=== PATIENT | female | born 1990 | race Caucasian/White ===

== ENCOUNTER → 2022-12-28 | Outpatient (CLI) | payer BC | END | disposition home or self-care (01) | LOC: LAB 15:59 → LAB SHORT 15:59 | DX: Z34.83 Encounter for supervision of other normal pregnancy, third trimester (principal) | CPT/HCPCS: 87081; 87150 ==

== ENCOUNTER → 2024-12-07 | Outpatient (CLI) | payer BC ==
[~2024-12-07] MED LIST: NIFE30ER PO
[2024-12-07 17:32] LABS: Source, Urine Clean Catch
[2024-12-07 18:59] LABS: Bacteria Many /hpf; Red Blood Cells, Urine 0-2 /hpf (0-2); Squamous Epithelial Cells Mod /hpf (Few)
== END | disposition home or self-care (01) ==
LOC: LAB SHORT 17:29 → LAB 17:29
PROVIDERS: Advanced Practice Midwife
DX: Z34.81 Encounter for supervision of other normal pregnancy, first trimester (principal)
CPT/HCPCS: 81015; 87086

== ENCOUNTER → 2025-06-19 | Outpatient (CLI) | payer BC | LOC: LAB 11:52 → LAB SHORT 11:52 | DX: Z34.83 Encounter for supervision of other normal pregnancy, third trimester (principal) | CPT/HCPCS: 87081; 87150 ==

== ENCOUNTER 2025-07-08 20:04 | Inpatient (IN) | payer BC ==
[~2025-07-08] VITALS: Ht 162.6 cm; Wt 83.6 kg
[2025-07-08] VITALS (8 sets, daily range): BP systolic 121–155; BP diastolic 79–91
[2025-07-08 21:09] LABS: BASOPHILS ABSOLUTE AUTO 0.03 K/mm3 (0.00-0.23); BASOPHILS PERCENT AUTO 0 % (0-2); EOSINOPHILS ABSOLUTE AUTO 0.04 K/mm3 (0.00-0.68); EOSINOPHILS PERCENT AUTO 0 % (0-6); Hematocrit 34.4 % (33.0-51.0); Hemoglobin 12.4 g/dL (11.5-16.0); IMMATURE GRAN ABSOLUTE AUTO 0.12 K/mm3 (0.00-0.10); IMMATURE GRAN PERCENT AUTO 1 % (0-1); LYMPHOCYTES ABSOLUTE AUTO 1.48 K/mm3 (0.84-5.20); LYMPHOCYTES PERCENT AUTO 10 % (21-46); MONOCYTES ABSOLUTE AUTO 0.76 K/mm3 (0.16-1.47); MONOCYTES PERCENT AUTO 5 % (4-13); Mean Corpuscular HGB Conc 36.0 g/dL (31.5-36.5); Mean Corpuscular Volume 88 fL (80-100); NEUTROPHILS ABSOLUTE AUTO 12.39 K/mm3 (1.96-9.15); NEUTROPHILS PERCENT AUTO 84 % (41-73); NRBC ABSOLUTE 0.00 K/mm3 (0.00-0.02); NRBC Auto 0.0 /100 WBC (0.0-0.2); Platelet Count 214 K/mm3 (150-400); RDW Coefficient Variation 12.4 % (11.7-14.2); RDW Standard Deviation 39.6 fL (35.1-46.3)
[2025-07-08 21:27] LABS: Alanine Aminotransfer (ALT/SGP 21.0 U/L (12-78); Albumin, Blood 2.6 g/dL (3.4-5.0); Albumin/Globulin Ratio 0.7 (0.8-1.8); Anion Gap 12.0 mmol/L (3-11); Aspartate Aminotrans (AST/SGOT 22.0 U/L (12-37); Bilirubin, Total 0.3 mg/dL (0.1-1.0); Blood Urea Nitrogen 9.0 mg/dL (8-24); CO2, Blood 21.0 mmol/L (21-32); Calcium, Blood 8.7 mg/dL (8.5-10.1); Chloride, Blood 111.0 mmol/L (98-108); Creatinine, Blood 0.53 mg/dL (0.40-1.00); Globulin, Blood 3.7 g/dL (2.2-4.0); Glucose, Blood 101.0 mg/dL (70-99); Potassium, Blood 3.3 mmol/L (3.5-5.5); Sodium, Blood 141.0 mmol/L (136-145); Total Protein, Blood 6.3 g/dL (6.4-8.2)
[2025-07-08 21:32] LABS: Creatinine, Urine Random 24.0 mg/dL (27.00-270.00); Protein, Urine Random 5.7 mg/dL (0.0-11.9); Protein/Creat Ratio, Ur Random 0.2
[2025-07-08] MEDS ORDERED: Oxytocin 10 Unit / ML Vial IM PRN (22:05)
[2025-07-08] MEDS ORDERED: OXYTOCIN/RINGER'S LACTATE 500 ML IV PRN (22:05)
[2025-07-08] MEDS ORDERED: ePHEDrine Sulfate 50 MG/ML 1ML Injection XX PRN (22:05)
[2025-07-08] MEDS ORDERED: Methylergonovine Maleate 0.2MG / ML 1ML Amp IM PRN (22:05)
[2025-07-08] MEDS ORDERED: FentaNYL Citrate 50 MCG/ML 2 ML Injection IV PRN (22:05)
[2025-07-08] MEDS ORDERED: Carboprost Tromethamine 250 MCG/ML 1ML Amp IM PRN (22:05)
[2025-07-08] MEDS ORDERED: Ondansetron HCl 2 MG / ML 2ML Vial IV PRN (22:05)
[2025-07-08] MEDS ORDERED: Tranexamic Acid 100 ML IV PRN (22:05)
[2025-07-08] MEDS ORDERED: FentaNYL 2mcg/ml-Bup 0.1% Epd 250 ML EPI PRN (22:05)
[2025-07-08] MEDS ORDERED: PRENATAL 19 TA1 EAC3 PO (22:36)
[2025-07-09] VITALS (18 sets, daily range): BP systolic 118–151; BP diastolic 60–85
[2025-07-09] MEDS ORDERED: FentaNYL Citrate 50 MCG/ML 2 ML Injection ONE (00:16)
[2025-07-09] MEDS ORDERED: FentaNYL Citrate 50 MCG/ML 2 ML Injection IV ONE (00:20)
[2025-07-09] MEDS ORDERED: CeFAZolin Sodium 2,000 MG in NS 100 ML IV ONE (00:25)
[2025-07-09] MEDS ORDERED: Methylergonovine Maleate 0.2MG / ML 1ML Amp IM PRN (01:05)
[2025-07-09] MEDS ORDERED: Ketorolac Tromethamine 30mg Vial IV PRN (01:10)
[2025-07-09] MEDS ORDERED: FLU VACC TS2025-26(6MOS UP)/PF 45 MCG/0.5 ML SYRINGE IM ONE (01:10)
[2025-07-09] MEDS ORDERED: Benzocaine Topical Anesthetic Spray 60GM TOP PRN (01:10)
[2025-07-09] MEDS ORDERED: Witch Hazel/Glycerin PADS TOP PRN (01:10)
[2025-07-09] MEDS ORDERED: Rho(D) Immune Globulin 300 MCG / SYR IM SCH (01:15)
[2025-07-09] MEDS ORDERED: OXYTOCIN/RINGER'S LACTATE 500 ML IV SCH (01:15)
[2025-07-09] MEDS ORDERED: CeFAZolin Sodium 1,000 MG in NS 50 ML IV SCH (06:00)
[2025-07-09 06:24] LABS: Hematocrit 32.7 % (33.0-51.0); Hemoglobin 11.6 g/dL (11.5-16.0); Mean Corpuscular HGB Conc 35.5 g/dL (31.5-36.5); Mean Corpuscular Volume 88 fL (80-100); NRBC ABSOLUTE 0.00 K/mm3 (0.00-0.02); NRBC Auto 0.0 /100 WBC (0.0-0.2); Platelet Count 206 K/mm3 (150-400); RDW Coefficient Variation 12.4 % (11.7-14.2); RDW Standard Deviation 39.6 fL (35.1-46.3)
--- NOTE | 2025-07-09 07:53 | NUR ---
DR AMARAL NOTIFIED THAT WBCS ARE 22.34. PT ALREADY RECEIVING ANCEF 1GM Q6H. PT IS ASYMPTOMATIC. NO NEW ORDERS AT THIS TIME.
[2025-07-09] MEDS ORDERED: Prenatal Vit/FE Fumarate/FA 1 Tab PO SCH (09:00)
--- NOTE | 2025-07-09 16:12 | NUR ---
TELEPHONE ORDERS TO D/C SID FROM DR AMARAL.
[2025-07-09] MEDS ORDERED: Rho(D) Immune Globulin 300 MCG / SYR IV ONE (16:15)
[2025-07-10 00:05] VITALS: BP 124/79
[2025-07-10 05:33] VITALS: BP 125/60
[2025-07-10 07:38] VITALS: BP 119/80
[2025-07-10 09:51] VITALS: BP 117/72
== END 2025-07-10 09:55 | disposition home or self-care (01) | DRG 798 ==
LOC: OBS 20:04 → BC 20:12 → OBS 21:58 → BC 22:02
PROVIDERS: ADMIT Advanced Practice Midwife
PROC: 10E0XZZ Delivery of Products of Conception, External Approach (ICD-10-PCS; principal; 2025-07-09)
PROC: 10D17ZZ Extraction of Products of Conception, Retained, Via Natural or Artificial Opening (ICD-10-PCS; 2025-07-09)
PROC: 4A1HXCZ Monitoring of Products of Conception, Cardiac Rate, External Approach (ICD-10-PCS; 2025-07-09)
DX: O26.893 Other specified pregnancy related conditions, third trimester (principal); Z37.0 Single live birth; Z67.41 Type O blood, Rh negative; Z3A.39 39 weeks gestation of pregnancy; O13.5 Gestational [pregnancy-induced] hypertension without significant proteinuria, complicating the puerperium; O73.1 Retained portions of placenta and membranes, without hemorrhage
CPT/HCPCS: 36415; 59025; 59414; 80053; 81003; 82570; 84156; 85025; 85027; 85460; 86850; 86900; 86901; 86923; 99214; A9270; J0690; J2791; J3010